=== PATIENT | male | born 1975 | race Caucasian/White ===

== ENCOUNTER 2018-07-29 08:32 | Day surgery (SDC) | payer OTHER, SELFPAY ==
[2018-07-29] MEDS: SODIUM CHLORIDE 0.9% 1,000 ML 100 ML IV (10:33)
[2018-07-29 10:38] VITALS: BP 152/96; PULSE 68; RESP 16; TEMP 36.8; O2SAT 100; BMI 22.4
--- NOTE | 2018-07-29 11:50 | PM.HP.1 ---
History of Present Illness Date Patient Seen: 07/29/18 Time Patient Seen: 11:50 Chief complaint: [id number] Narrative: Chest pain Patient History Social History household members: spouse Family & Social History Social History: household members spouse Meds Home Medications Medication Instructions Recorded Confirmed Type CA PANTOTHENATE/FOLIC ACID/VIT 1 tab PO Q DAY #0 12/28/10 History (MULTIVITAMIN) Allergies Allergy/AdvReac Type Severity Reaction Status Date / Time amoxicillin [AMOXICILLIN] Allergy Mild HIVES,EDEMA, Unverified 07/16/17 12:13 ITCHING Exam Vital Signs (past 8 hours): - 07/29/18 10:38 Temperature 98.2 F Pulse Rate 68 Respiratory Rate 16 Blood Pressure 152/96 H Pulse Oximetry 100 Oxygen Delivery Method Room Air Narrative Exam Narrative: Oropharynx free of lesions Chest clear to auscultation percussion Cardiac exam reveals no S3 or murmur Assessment & Plan Assessment & Plan narrative: Chest discomfort rule out GERD EGD has been explained as have risks benefits alternatives. Further recommendations will follow the results of the study. His reflux seems to be controlled on ranitidine
--- NOTE | 2018-07-29 11:51 | PM.OP.ENDO ---
Operative Date/Time/Diagnoses Date of procedure: 07/29/18 Time of procedure: 11:51 Pre-op diagnosis: See indication and findings Procedure & Clinicians Study performed: EGD Same procedure as scheduled: Yes Indications: Chest discomfort unresponsive to medications Surgeon: Misha Vogt Procedure Notes Procedure in detail: After informed consent was obtained the patient was placed in left lateral decubitus position. The video upper scope was placed into the oropharynx with the patient was rolled into the esophagus. The esophagus stomach and duodenum were carefully examined. On withdrawal retroflexed view the GE junction was performed. The scope was removed. The patient tolerated the procedure well. Blood loss none Complications none Medications Total sedation time 11 minutes Versed 7 mg fentanyl 100 mcg IV titration Findings 1. Grade B esophagitis with 1 erosion over 5 mm in size at the GE junction. This was somewhat friable. 2. Fairly wide open lower esophageal sphincter 3. Normal stomach 4. Normal duodenal bulb and sweep Jason will merely stay on his current medications again try to taper down to just once a day Zantac. Watching his diet will be helpful.
[2018-07-29] MEDS: fentaNYL 250 MCG/5 ML INJ IV (11:59)
[2018-07-29] MEDS: MIDAZOLAM 5 MG/5 ML VIAL IV (12:00)
[2018-07-29 12:14] VITALS: BP 106/68; PULSE 64; RESP 15; TEMP 37; O2SAT 95
[2018-07-29 12:19] VITALS: BP 96/66; PULSE 64; RESP 15; O2SAT 95
[2018-07-29 12:24] VITALS: BP 99/67; PULSE 62; RESP 15; O2SAT 95
[2018-07-29 12:44] VITALS: BP 111/60; PULSE 60; RESP 16; TEMP 36.9; O2SAT 96
== END 2018-07-29 12:44 | disposition home or self-care (01) ==
PROVIDERS: PCP Nurse Practitioner Family; Visit Provider Internal Medicine Gastroenterology
PROC: 0DJ08ZZ Inspection of Upper Intestinal Tract, Via Natural or Artificial Opening Endoscopic (ICD-10-PCS; CPT 43235; principal; 2018-07-29 11:00)
DX: K20.9 Esophagitis, unspecified (principal); Z87.891 Personal history of nicotine dependence
CPT/HCPCS: 43235; J2250; J3010